=== PATIENT | female | born 1965 | race Caucasian/White ===

== ENCOUNTER 2023-06-23 10:35 | Emergency (ER) | payer BC, SELFPAY ==
[2023-06-23 11:35] VITALS: BP 154/87; PULSE 102; RESP 20; TEMP 36.8; O2SAT 95; BMI 41.8
[2023-06-23 11:54] LABS: UTC Strep Screen (Rapid) Negative (Negative)
[2023-06-23 11:55] LABS: UTC Influenza A Antigen Negative (Negative); UTC Influenza B Antigen Negative (Negative)
--- NOTE | 2023-06-23 11:55 | EXP.UTC ---
Discharge Plan Disposition Patient Disposition: Home, Self-Care Condition: Good Prescriptions Prescriptions: New azithromycin [Zithromax Z-Chacho] 250 mg tablet See Rx Instructions .ROUTE .COMPLEX 5 Days Qty: 6 0RF Rx Instructions: For 250 mg dose pack: take 500 mg today (day 1), then 250 mg for 4 days (days 2-5) guaifenesin [Mucinex] 600 mg tablet extended release 12hr 1,200 mg PO BID PRN (Reason: cough) Qty: 20 0RF No Action losartan 100 mg tablet 100 mg PO DAILY Patient Comments: TAKE 1 TABLET BY MOUTH EVERY DAY hydrochlorothiazide 12.5 mg tablet 12.5 mg PO DAILY Patient Comments: TAKE 1 TABLET BY MOUTH EVERY DAY insulin degludec [Tresiba FlexTouch U-200] 200 unit/mL (3 mL) insulin pen 30 unit SQ DAILY Patient Comments: INJECT 30 UNITS EVERY MORNING AND 30 UNITS EVERY EVENING PLUS 2 UNITS TO PRIME NEEDLE TWICE DAILY. Ozempic 2 mg/dose (8 mg/3 mL) pen injector 2 mg SQ WEEKLY Patient Comments: INJECT 2 MG EVERY WEEK BY SUBCUTANEOUS ROUTE metformin 500 mg tablet extended release 24 hr 1,000 mg PO HS Patient Comments: TAKE 2 TABLETS BY MOUTH EVERY NIGHT Referrals Follow up/Referrals: Christina Evans DO [Primary Care Provider] - See instructions Activity Restrictions/Add. Instructions Additional Instructions/Restrictions: *Monitor Temp, Over the counter Motrin or Tylenol as directed/as needed Tylenol every 4 hours and Motrin every 6 hours (as long as your family doctor has told you that you can take it) for fever or pain. and straight to ER if unable to lower temp less than 101.0 after medication given *Warm salt water gargles may help to soothe the throat *Throat Lozenges? *Warm fluids like tea with honey may help to soothe the throat? *Sleep elevated *Humidifier/Vaporizer Your throat swab was sent for culture. Those results are typically sent to your primary care. Be sure to follow up in 2-3 days with your family doctor/primary care physician if no improvement so they can review those result and treat if necessary. If you don?t have a primary care doctor, I recommend you get one but in the mean time, you will have to return to a walk in clinic Follow up IMMEDIATELY for new or worsening symptoms or no Noticeable improvement over the next 48-72 hours. 911 for difficulty breathing or swallowing Clinical Impressions Clinical Impression: Pharyngitis Qualifiers: Pharyngitis/tonsillitis etiology: unspecified etiology Qualified Code(s): J02.9 - Acute pharyngitis, unspecified Instructions Patient Instructions: Sore Throat, DI for Sinusitis, Cough Discharge ED Provider: Marichuy Pabon [facility] [place] General Stated complaint: cough, h/a, fever Mode of Arrival: Ambulatory Source of Information: Patient Limitations: No Limitations Time Seen by Provider: 06/23/23 11:55 Description of Symptoms (Recalled from Triage Doc. by RN): PATIENT C/O COUGH, FEVER, AND HEADACHE X 2 DAYS HEENT Symptoms (Recalled from RN notes): Yes Resp Symptoms (Recalled from RN notes): Yes Skin Symptoms (Recalled from RN notes): No MS Symptoms (Recalled from RN notes): No Functional Status (Recalled from RN notes): WNL History of Present Illness Provider Complaint: Patient states that she hasnt felt well for several days States that she has been having a sore scratchy throat, productive cough at times, headache and thinks she may have had fever last night States that she took a home COVID test and it was negative so she came in to get checked for flu and strep since she starts orientation tomorrow for her new job Related Data Home Medications Medication Instructions Recorded Confirmed hydrochlorothiazide 12.5 mg tablet 12.5 mg PO DAILY 06/23/23 06/23/23 insulin degludec 200 unit/mL (3 30 unit SQ DAILY 06/23/23 06/23/23 mL) subcutaneous pen (Tresiba FlexTouch U-200 insulin) losartan 100 mg tablet 100 mg PO DAILY 06/23/23 06/23/23 metformin 500 mg tablet,extended 1,000 mg PO HS 06/23/23 06/23/23 release 24 hr semaglutide 2 mg/dose (8 mg/3 mL) 2 mg SQ WEEKLY 06/23/23 06/23/23 subcutaneous pen injector (Ozempic) Previous Rx's Medication Instructions Recorded azithromycin 250 mg tablet See Rx Instructions PO .COMPLEX 5 06/23/23 (Zithromax Z-Chacho) days #6 tabs guaifenesin 600 mg tablet, 1,200 mg PO BID PRN cough #20 tabs 06/23/23 extended release 12 hr (Mucinex) Allergies Allergy/AdvReac Type Severity Reaction Status Date / Time cat dander Allergy Verified 06/23/23 11:51 Worker's Comp Is this a Worker's Comp case?: No [facility] Disclaimer: The information contained in this section may have been updated after the patient was seen, as this information can be updated by other users. Medical History (Updated 06/23/23 @ 12:01 by Marichuy Pabon APRN) Asthma Diabetes mellitus, type 2 Hypertension Surgical History (Updated 06/23/23 @ 12:00 by Desiree Clements RN) History of section History of cholecystectomy History of hysterectomy Social History Smoking Status: Unknown if ever smoked alcohol intake: never current occupational status: employed Travel in the last 8 weeks: None ROS Obtained: Yes All systems reviewed & no additional complaints except as documented and Yes Systems reviewed as appropriate & no additional complaints except as documented Constitutional Constitutional: Reports system reviewed and no additional complaints, except as documented, Reports as per HPI, Reports body ache, Reports fever(s) and Reports headache(s) ENT Ears, Nose, Mouth, and Throat: Reports system reviewed and no additional complaints, except as documented, Reports as per HPI, Reports headache(s), Reports sinus pressure and Reports sore throat Cardiovascular Cardiovascular: Reports system reviewed and no additional complaints, except as documented and Reports as per HPI Respiratory Respiratory: Reports system reviewed and no additional complaints, except as documented, Reports as per HPI, Reports chest congestion and Reports cough Gastrointestinal Gastrointestingal: Reports system reviewed and no additional complaints, except as documented and as per HPI Musculoskeletal Musculoskeletal: Reports system reviewed and no additional complaints, except as documented and Reports as per HPI Neurologic Neurologic: Reports headache(s) Physical Exam General General appearance: alert and in no apparent distress ENT ENT exam: Present mucous membranes moist Expanded ENT Exam Nose exam: Present sinus tenderness Throat exam: Present other (Pharyngeal erythema noted with PND) Respiratory Respiratory exam: Present normal lung sounds bilaterally; Absent respiratory distress or wheezes Cardiovascular Cardiovascular exam: Present regular rate, normal rhythm and tachycardia Neurological Exam Neurological exam: Present alert, oriented X3 and normal gait Medical Decision Making Herber Inquiry Pt receiving controlled substance: No Herber was queried for this patient: No Vital Signs: 06/23/23 11:35 Temperature 98.2 F Temperature Source Oral Pulse Rate [Left Brachial] 102 H Respiratory Rate 20 Blood Pressure [Left Arm] 154/87 H Blood Pressure Mean [Left Arm] 109 Blood Pressure Source [Left Arm] Automatic Cuff Blood Pressure Position [Left Arm] Sitting 02 Sat by Pulse Oximetry 95 Oxygen Delivery Method Room Air Lab Data Lab results reviewed: Yes I reviewed the patient's lab results. Lab Results 06/23/23 11:50: Strep Scn Rapid Clinic Negative
[2023-06-23 12:04] VITALS: BP 154/87; PULSE 102; RESP 20; TEMP 36.8; O2SAT 95
== END 2023-06-23 12:06 | disposition home or self-care (01) ==
PROVIDERS: Emergency Provider Nurse Practitioner; PCP Family Medicine
DX: J02.9 Acute pharyngitis, unspecified (principal); R05.8 Other specified cough; R51.9 Headache, unspecified; R50.9 Fever, unspecified; R09.81 Nasal congestion; I10 Essential (primary) hypertension; E11.9 Type 2 diabetes mellitus without complications; Z79.4 Long term (current) use of insulin; Z79.84 Long term (current) use of oral hypoglycemic drugs; Z79.85 Long-term (current) use of injectable non-insulin antidiabetic drugs
CPT/HCPCS: 87804; 87880; 99204; 99212; G0463

== ENCOUNTER 2023-12-02 12:51 | Emergency (ER) | payer OTHER, SELFPAY ==
[2023-12-02 13:05] VITALS: BP 165/92; PULSE 89; RESP 17; TEMP 36.7; O2SAT 98; BMI 42.2
--- NOTE | 2023-12-02 13:15 | ED_ITS ---
Discharge Plan Disposition Patient Disposition: Home, Self-Care Condition: Good Prescriptions Prescriptions: New mupirocin 2 % ointment 1 applic topical TID 10 Days Qty: 22 0RF Rx Instructions: apply to wound on heel area as directed No Action losartan 100 mg tablet 100 mg PO DAILY Patient Comments: TAKE 1 TABLET BY MOUTH EVERY DAY hydrochlorothiazide 12.5 mg tablet 12.5 mg PO DAILY Patient Comments: TAKE 1 TABLET BY MOUTH EVERY DAY insulin degludec [Tresiba FlexTouch U-200] 200 unit/mL (3 mL) insulin pen 30 unit SQ DAILY Patient Comments: INJECT 30 UNITS EVERY MORNING AND 30 UNITS EVERY EVENING PLUS 2 UNITS TO PRIME NEEDLE TWICE DAILY. Ozempic 2 mg/dose (8 mg/3 mL) pen injector 2 mg SQ WEEKLY Patient Comments: INJECT 2 MG EVERY WEEK BY SUBCUTANEOUS ROUTE azithromycin [Zithromax Z-Chacho] 250 mg tablet See Rx Instructions .ROUTE .COMPLEX 5 Days Qty: 6 0RF Rx Instructions: For 250 mg dose pack: take 500 mg today (day 1), then 250 mg for 4 days (days 2-5) guaifenesin [Mucinex] 600 mg tablet extended release 12hr 1,200 mg PO BID PRN (Reason: cough) Qty: 20 0RF metformin 500 mg tablet extended release 24 hr 1,000 mg PO HS Patient Comments: TAKE 2 TABLETS BY MOUTH EVERY NIGHT Referrals Follow up/Referrals: Christina Evans DO [Primary Care Provider] - See instructions Activity Restrictions/Add. Instructions Additional Instructions/Restrictions: *Monitor Temp, Over the counter Motrin or Tylenol as directed/as needed Tylenol every 4 hours and Motrin every 6 hours (as long as your family doctor has told you that you can take it) for fever or pain. and straight to ER if unable to lower temp less than 101.0 after medication given *Warm salt water gargles may help to soothe the throat *Throat Lozenges? *Warm fluids like tea with honey may help to soothe the throat? *Sleep elevated *Humidifier/Vaporizer Follow up IMMEDIATELY for new or worsening symptoms or no Noticeable improvement over the next 48-72 hours. 911 for difficulty breathing or swallowing You were tested for today for COVID19 your test result should be back in the next 24hours, you may check your results on the [facility] My Health Portal Clinical Impressions Clinical Impression: Viral syndrome, Blister Stand Alone Forms Stand Alone Forms: Work/School Release Instructions Patient Instructions: DI for Blisters, Mupirocin, DI for COVID-19 (Suspected or Confirmed ) Print Language Print Language: Tristanian Discharge ED Provider: Marichuy Pabon [facility] [place] HPI General Stated complaint: covid+ at home test Mode of Arrival: Ambulatory Source of Information: Patient Limitations: No Limitations Time Seen by Provider: 12/02/23 13:15 Description of Symptoms (Recalled from Triage Doc. by RN): PATIENT C/O FEVER, COUGH, SORE THROAT, EAR ACHE, AND HEADACHE SINCE SATURDAY. PATIENT REPORTS A POSITIVE AT HOME COVID TEST. PATIENT ALSO C/O BLISTER ON FOOT SINCE SATURDAY HEENT Symptoms (Recalled from RN notes): Yes Resp Symptoms (Recalled from RN notes): Yes Skin Symptoms (Recalled from RN notes): Yes MS Symptoms (Recalled from RN notes): No Functional Status (Recalled from RN notes): WNL History of Present Illness Provider Complaint: Patient states that she started feeling bad on Saturday States that she has been having body aches, chills, headache, nasal congestion, pain and pressure in her ears and over all not feeling well States that she took a home COVID test and it showed positive and she had to come in and get a test for work States also she is a diabetic and she has a blister on the heel of her foot that she is worried may be getting infected Related Data Home Medications ?Medication ?Instructions ?Recorded ?Confirmed hydrochlorothiazide 12.5 mg tablet 12.5 mg PO DAILY 06/23/23 06/23/23 insulin degludec 200 unit/mL (3 30 unit SQ DAILY 06/23/23 06/23/23 mL) subcutaneous pen (Tresiba FlexTouch U-200 insulin) losartan 100 mg tablet 100 mg PO DAILY 06/23/23 06/23/23 metformin 500 mg tablet,extended 1,000 mg PO HS 06/23/23 06/23/23 release 24 hr semaglutide 2 mg/dose (8 mg/3 mL) 2 mg SQ WEEKLY 06/23/23 06/23/23 subcutaneous pen injector (Ozempic) Previous Rx's ?Medication ?Instructions ?Recorded azithromycin 250 mg tablet See Rx Instructions PO .COMPLEX 5 06/23/23 (Zithromax Z-Chacho) days #6 tabs guaifenesin 600 mg tablet, 1,200 mg (2 x 600 mg) PO BID PRN 06/23/23 extended release 12 hr (Mucinex) cough #20 tabs mupirocin 2 % topical ointment 1 applic topical TID 10 days #22 12/02/23 grams Allergies Allergy/AdvReac Type Severity Reaction Status Date / Time cat dander Allergy Verified 06/23/23 11:51 Worker's Comp Is this a Worker's Comp case?: No [facility] Disclaimer: The information contained in this section may have been updated after the patient was seen, as this information can be updated by other users. Medical History (Updated 12/02/23 @ 13:28 by Marichuy Pabon APRN) Diabetes mellitus, type 2 Asthma Hypertension Surgical History (Updated 06/23/23 @ 12:00 by Desiree Clements RN) History of hysterectomy History of cholecystectomy History of section Social History (Updated 06/23/23 @ 12:01 by Marichuy Pabon APRN) Smoking Status: Unknown if ever smoked alcohol intake: never current occupational status: employed Travel in the last 8 weeks: None ROS Obtained: Yes All systems reviewed & no additional complaints except as documented and Yes Systems reviewed as appropriate & no additional complaints except as documented Constitutional Constitutional: Reports system reviewed and no additional complaints, except as documented, Reports as per HPI, Reports body ache, Reports chills, Reports fever(s) and Reports headache(s) ENT Ears, Nose, Mouth, and Throat: Reports system reviewed and no additional complaints, except as documented, Reports as per HPI, Reports otalgia, Reports headache(s), Reports nasal congestion, Reports nasal discharge and Reports sore throat Cardiovascular Cardiovascular: Reports system reviewed and no additional complaints, except as documented and Reports as per HPI Respiratory Respiratory: Reports system reviewed and no additional complaints, except as documented, Reports as per HPI and Reports cough Gastrointestinal Gastrointestingal: Reports system reviewed and no additional complaints, except as documented and as per HPI Integumentary/Breasts Skin/Breast: Reports system reviewed and no additional complaints, except as documented, Reports as per HPI and Reports other (blister on back of right heel from rubbing shoe) Neurologic Neurologic: Reports headache(s) Physical Exam General General appearance: alert and in no apparent distress ENT ENT exam: Present mucous membranes moist Expanded ENT Exam Nose exam: Absent sinus tenderness Respiratory Respiratory exam: Present normal lung sounds bilaterally; Absent respiratory distress or wheezes Cardiovascular Cardiovascular exam: Present regular rate, normal rhythm and normal heart sounds Expanded Lower Extremity Exam Right: Ankle image: 2 1. open blister area noted, no swelling mild redness noted Foot/toe exam: Present tenderness and other (open blister noted ) Gait: observed and normal Neurological Exam Neurological exam: Present alert, oriented X3 and normal gait Medical Decision Making Herber Inquiry Pt receiving controlled substance: No Herber was queried for this patient: No Vital Signs: 12/02/23 13:05 Temperature 98.0 F Temperature Source Oral Pulse Rate [Left Brachial] 89 Respiratory Rate 17 Blood Pressure [Left Arm] 165/92 H Blood Pressure Mean [Left Arm] 116 Blood Pressure Source [Left Arm] Automatic Cuff Blood Pressure Position [Left Arm] Sitting 02 Sat by Pulse Oximetry 98 Oxygen Delivery Method Room Air Orders (Tests/Meds): ORDERS Category Date Time Status Rapid PCR Covid and Flu A/B Stat Lab 12/02/23 13:11 Ordered
[2023-12-02 13:19] LABS: Influenza A, PCR Not Detected (NotDetected); Influenza B, PCR Not Detected (NotDetected)
[2023-12-02 13:29] VITALS: BP 165/92; PULSE 89; RESP 17; TEMP 36.7; O2SAT 98
[2023-12-02 13:52] LABS: Coronavirus 19, PCR Detected (NotDetected)
== END 2023-12-02 13:33 | disposition home or self-care (01) ==
PROVIDERS: Emergency Provider Nurse Practitioner; PCP Family Medicine
DX: U07.1 COVID-19 (principal); R51.9 Headache, unspecified; R09.81 Nasal congestion; H92.03 Otalgia, bilateral; M79.18 Myalgia, other site; R68.83 Chills (without fever); S90.821A Blister (nonthermal), right foot, initial encounter; E11.9 Type 2 diabetes mellitus without complications; Z79.4 Long term (current) use of insulin; Z79.84 Long term (current) use of oral hypoglycemic drugs; Z79.85 Long-term (current) use of injectable non-insulin antidiabetic drugs; I10 Essential (primary) hypertension; J45.909 Unspecified asthma, uncomplicated; W22.8XXA Striking against or struck by other objects, initial encounter
CPT/HCPCS: 87636; 99212; 99214; G0463

== ENCOUNTER 2024-11-19 10:33 | Outpatient (CLI) | payer OTHER, SELFPAY ==
[2024-11-19 17:30] LABS: Hematocrit 46.7 % (37.0-47.0); Hemoglobin 14.7 g/dL (12.2-16.2); Immature Granulocytes % 0.4 %; Mean Corpuscular HGB Conc 31.5 g/dL (31.8-35.4); Mean Corpuscular Hemoglobin 26.0 pg (27.0-31.2); Mean Corpuscular Volume 82.7 fl (81-99); Nucleated Red Blood Cells % 0 %; Platelet Count 307 K/mm3 (142-424); Red Blood Count 5.65 M/mm3 (4.20-5.40); Red Cell Distribution Width-SD 44.1 fL; White Blood Count 8.2 K/mm3 (4.8-10.8)
[2024-11-19 19:09] LABS: Alanine Aminotransferase 23 U/L (12-78); Albumin Level 4.6 g/dl (3.5-5.0); Albumin/Globulin Ratio 1.6 (1.1-1.8); Alkaline Phosphatase 134 U/L (38-126); Anion Gap 14.9 mEq/L (5-15); Aspartate Amino Transferase 36 U/L (14-36); Bilirubin,Total 0.6 mg/dl (0.2-1.3); Blood Urea Nitrogen 10 mg/dl (7-17); Calcium 10.0 mg/dl (8.4-10.2); Carbon Dioxide 22 mmol/L (22.0-30.0); Chloride 107 mmol/L (98-107); Cholesterol 197 mg/dl (140-200); Creatinine,Serum 0.90 mg/dl (0.52-1.04); Estimated Glomerular Filt Rate 65 ml/min (>60); GFR (African American) 78 ML/MIN (>60); Globulin 2.8 g/dL (1.3-3.2); Glucose 87 mg/dl (74-100); HDL Cholesterol 59 mg/dl (40-60); Potassium 3.9 mmoL/L (3.5-5.1); Sodium 140 mmol/L (136-145); Total Protein,Serum 7.4 g/dl (6.3-8.2); Triglycerides 119 mg/dl (30-150)
[2024-11-19 19:24] LABS: Hemoglobin A1C 5.9 % (4.0-6.0)
[2024-11-19 19:25] LABS: T4 (Thyroxine) 8.6 ug/dl (5.53-11.0)
[2024-11-19 19:38] LABS: Thyroid Stimulating Hormone 0.06 uIU/mL (0.465-4.68)
[2024-11-19 20:07] LABS: Hepatitis C Ab Qual. W/ RFX NEGATIVE (Negative)
--- OUTSIDE RECORDS SUMMARY | 2024-11-20 10:30 | XMS_ITS | Encounter Summary ---
Author Organization [employer] ([place], [place], [place], [place]) Address [address] [place] [address] Care Team Providers Care Side Trimmer Name Role Phone Unavailable Primary Care Provider Unavailabl e Encounter Details Date Type Department Care Team (Late st Contact Info) Description 11/03/2021 Transcribed Document [facility] [place] Family Medicine [facility] [place] [address] ProviderElena MD [facility] [place] [address] Social History Tobacco Use Types Packs/Day Years Used Date Smoking Tobacco: Never Assessed Comments Unknown Sex and Gender Information Value Date Recorded Sex Assigned at Female 12/29/2021 6:26 PM CDT Legal Sex Female 6:26 PM CDT Gender Identity Female 12/29/2021 6:26 PM CDT Sexual Orientation Not on file documented as of this encounter Miscellaneous Notes * [employer] Conversion Note - Elena ProviderMD - 11/03/2021 11:51 AM CDT ED Discharge Entered On: 11/03/2021 11:51 EDT Performed On: 11/03/2021 11:51 EDT by Miriam Horton Non Emp data integrity analyst Process Patient Disposition : Discharge Personal Belongings With Patient : Yes Patient Education Completed : Yes Teaching Evaluation : Verbalizes understanding IV Discontinued : Not applicable Nursing Documentation Completed : Yes Miriam Horton Non Emp RN - 11/03/2021 11:51 EDT ED Discharge Discharge To : Home without planned follow-up Mode Of Departure : Private vehicle Accompanied By : Unaccompanied Discharge Instructions Reviewed With, Opportunity For Questions Given : Patient Miriam Horton Non Emp RN - 11/03/2021 11:51 EDT documented in this encounter Plan of Treatment Not on file documented as of this encounter Visit Diagnoses Not on filedocumented in this encounter
--- OUTSIDE RECORDS SUMMARY | 2024-11-20 10:30 | XMS_ITS | Encounter Summary ---
Author Organization [employer] ([place], [place], [place], [place]) Address [address] [place] [address] Care Team Providers Care Animation Producer Name Role Phone Unavailable Primary Care Provider Unavailabl e Encounter Details Date Type Department Care Team (Late st Contact Info) Description 11/03/2021 Transcribed Document [facility] [place] [facility] [place] [address] ProviderElena MD [facility] [place] [address] Social History Tobacco Use Types Packs/Day Years Used Date Smoking Tobacco: Never Assessed Comments Unknown Sex and Gender Information Value Date Recorded Sex Assigned at Female 12/29/2021 6:26 PM CDT Legal Sex Female 6:26 PM CDT Gender Identity Female 12/29/2021 6:26 PM CDT Sexual Orientation Not on file documented as of this encounter Miscellaneous Notes * [employer] Conversion Note - Historical ProviderMD - 11/03/2021 11:46 AM CDT [facility] [place] [address] Visit Date/Time: 11/03/2021 11:46:36 MYRNA CRUZ The above patient was seen in the hospital today and needs to be excused from work/school until Return to Work/School Date:11/06/2021 No weight bearing left knee until cleared by ortho. Electronically signed by Celena [facility] Conversion Creative Art Director [employer] at 08/07/2022 6:24 PM CDT documented in this encounter Plan of Treatment Not on file documented as of this encounter Visit Diagnoses Not on filedocumented in this encounter
--- OUTSIDE RECORDS SUMMARY | 2024-11-20 10:30 | XMS_ITS | Referral Summary ---
Author Organization [employer] ([place], [place], [place], [place]) Address [address] [place] [address] Care Team Providers Care Surgical Tech Name Role Phone Unavailable Primary Care Provider Unavailabl e Social History Tobacco Use Types Packs/Day Years Used Date Smoking Tobacco: Never Assessed Comments Unknown Sex and Gender Information Value Date Recorded Sex Assigned at Female 12/29/2021 6:26 PM CDT Legal Sex Female 6:26 PM CDT Gender Identity Female 12/29/2021 6:26 PM CDT Sexual Orientation Not on file Plan of Treatment Not on file
--- OUTSIDE RECORDS SUMMARY | 2024-11-20 10:30 | XMS_ITS | Encounter Summary ---
Author Organization [employer] ([place], [place], [place], [place]) Address [address] [place] [address] Care Team Providers Care Supervisor Bindery Name Role Phone Unavailable Primary Care Provider Unavailabl e Encounter Details Date Type Department Care Team (Late st Contact Info) Description 11/03/2021 Transcribed Document [facility] Family Medicine [facility] [place] [address] ProviderElena MD [address] [place] [id number] Social History Tobacco Use Types Packs/Day Years [...] Conversion Note - Historical ProviderMD - 11/03/2021 11:41 AM CDT Patient: MYRNA CRUZ Age: 56 years Sex: Female : 1965 Associated Diagnoses: Left knee sprain Author: FACUNDO ESTRADA PA-C Basic Information Time seen: Date & time 11/03/2021 11:25:00. History source: Patient. Arrival mode: Private vehicle. History limitation: None. Additional information: Chief Complaint from Nursing Triage Note : Chief Complaint 11/03/2021 8:36 EDT Chief Complaint Pt presents with left knee pain since 0700 this am. Reports she stepped wrong with a carseat in her arms. Limping to triage. . History of Present Illness The patient presents with knee pain and knee swelling. The onset was just prior to arrival. Type of injury: twisting. Location: Left knee. The character of symptoms is pain. The degree at present is moderate. There are exacerbating factors including movement, transfer, weight bearing, walking and She reports she twisted left knee twice last week and was still sore today. She then twisted left knee again today. Reports pain mostly right medial/posteriorly.. The relieving factor is rest. Risk factors consist of diabetes mellitus. Prior episodes: none. Therapy today: none. Associated symptoms: none. Review of Systems Constitutional symptoms: Negative except as documented in HPI. Skin symptoms: Negative except as documented in HPI. Musculoskeletal symptoms: Joint pain. Neurologic symptoms: Negative except as documented in HPI. Health Status Allergies: Allergic Reactions (Selected) No Known Allergies. Past Medical/ Family/ Social History Medical history Endocrine: diabetes. Surgical history: No active procedure history items have been selected or recorded.. Family history: No family history items have been selected or recorded.. Social history: Social & Psychosocial Habits Employment/School 11/03/2021 Status: Employed Home/Environment 11/03/2021 Living situation: Home/Independent . Problem list: No qualifying data available . Physical Examination Vital Signs Vital Signs/Vital Measures 11/03/2021 8:36 EDT Systolic Blood Pressure 131 mmHg Diastolic Blood Pressure 74 mmHg Temperature Source Oral Temperature Mode Fahrenheit Temperature, Fahrenheit 97.8 Deg F Clinical Temperature, C 36.6 Deg C Peripheral Pulse Rate 100 bpm Respiratory Rate 16 Breaths/Min Oxygen Saturation 99 % Oxygen Therapy Mode Room air . Measurements 11/03/2021 8:36 EDT Height Source Stated Height Entry Format Crisp Height/Length, PAKISTANI (ft) 5 ft Height/Length PAKISTANI 8 Inch CLINICALHEIGHT 172.72 cm Republic Body Weight 63.45 kg Weight Source, ED Critical estimated dosing weight Weight Entry Format Crisp Weight Bur[place] lb 274 lb CLINICALWEIGHT 124.55 kg Body Surface Area (BSA) 2.34 m2 Body Mass Index 41.8 kg/m2 >HHI . Oxygen Saturation 11/03/2021 8:36 EDT Oxygen Saturation 99 % . General: Alert, no acute distress. Skin: Warm, dry, pink. Head: Normocephalic. Eye Cardiovascular Respiratory Musculoskeletal: No deformity, Lower extremity: Left, knee, tenderness, swelling, range of motion (limited, restricted by pain), tenderness right medial posterior knee, anterior left knee tenderness, no redness, pain with full rom, no lower leg or ankle tenderness. No obvious joint lax.. Chest wall Neurological: Alert and oriented to person, place, time, and situation, normal motor observed, normal speech observed. Psychiatric: Cooperative, appropriate mood & affect, normal judgment. Medical Decision Making Differential Diagnosis: Sprain, strain, internal knee injury. Documents reviewed: Emergency department nurses' notes. Orders Include Previous Orders (Selected) Inpatient Orders Ordered DME For Discharge: Discharge: ED Fall Risk Documented: Completed Broset Violence Assessment: CR Knee 3 Vws LT: ED Adult Fall Risk Assessment: ED Adult Triage: ED C-SSRS: ED Clinical Reconciliation: ED informatica architect: Prescriptions Prescribed Naprosyn 500 mg oral tablet: 1 Tab, Oral, BID, for 10 Day(s), PRN: for pain, 20 Tab, 0 Refill(s). Radiology results: Radiology Results (Last 48 hours) [id number] -- 11/03/2021 08:23 CR Knee 3 Vws LT (11/03/2021 08:52) Result: CLINICAL INDICATION: Left knee pain. EXAMINATION TECHNIQUE: CR Knee 3 Vws LTCOMPARISON:None.FINDINGS:No acute fracture or malalignment. No suprapatellar joint effusion.Minimal tricompartmental osteoarthrosis. Possible intra-articular losebodies in the posterior joint space. No acute soft tissue abnormality.Bone mineralization is within normal limits. No radiodense foreignbodies.IMPRESSION:No acute osseous findings.Images personally reviewed, interpreted and dictated by HUGO Navarro. . Impression and Plan Diagnosis Left knee sprain - Discharge, Emergency medicine, Medical Plan Condition: Stable. Disposition: Discharged Admit/Transfer/Discharge: Discharge (Order): Start: 11/03/2021 11:46 EDT, Discharge to: Home. Prescriptions: Prescription [facility] Pharm[facility]: Naprosyn 500 mg oral tablet (Prescribe): 1 Tab, Oral, BID, for 10 Day(s), PRN: for pain, 20 Tab, 0 Refill(s). Patient was given the following educational materials: Knee Sprain, Adult. Follow up with: ANDREWS CISNEROS Within 2 to 3 days; JUNI HO Within 2 to 3 days Rest and elevate left knee. Follow up with ortho next week. If pain persist, ortho will consider MRI for further evaluation of ligaments. Return to ER if symptoms worse or different.. Counseled: Patient, Regarding diagnosis, Regarding diagnostic results, Regarding treatment plan, Regarding prescription, Patient indicated understanding of instructions. Notes: I certify that the MLP/DIRECTOR OF BILLING performed the services as delegated. . documented in this encounter Plan of Treatment Not on file documented as of this encounter Visit Diagnoses Not on filedocumented in this encounter
--- OUTSIDE RECORDS SUMMARY | 2024-11-20 10:30 | XMS_ITS | Encounter Summary ---
Author Organization [employer] ([place], [place], [place], [place]) Address [address] [place] [address] Care Team Providers Care Rn Recruitment Name Role Phone Unavailable Primary Care Provider Unavailabl e Encounter Details Date Type Department Care Team (Late st Contact Info) Description 11/03/2021 Transcribed Document [facility] [place] [address] [place] [address] ProviderElena MD [address] [place], [place] [id number] Social History Tobacco Use Types Packs/Day Years [...] Conversion Note - Historical ProviderMD - 11/03/2021 8:23 AM CDT Broset Violence Assessment Entered On: 11/03/2021 11:24 EDT Performed On: 11/03/2021 11:23 EDT by Miriam Horton Non Emp RN Broset Violence Assessment Broset Violence Checklist of Symptoms : None Broset Violence Symptoms Subtotal : 0 Broset Violence Symptoms Indicator : Low risk (0) Broset Interventions : [place] precautions for safety used Miriam Horton Non Emp RN - 11/03/2021 11:23 EDT documented in this encounter Plan of Treatment Not on file documented as of this encounter Visit Diagnoses Not on filedocumented in this encounter
--- OUTSIDE RECORDS SUMMARY | 2024-11-20 10:30 | XMS_ITS | Clinical Summary ---
Author Organization [employer] ([place], [place], [place], [place]) Address [address] [place] [address] Care Team Providers Care Gas Combustion Engineer Name Role Phone Unavailable Primary Care Provider [...]
--- OUTSIDE RECORDS SUMMARY | 2024-11-20 10:30 | XMS_ITS | Clinical Summary ---
Author Organization [facility] Address [address] [place] [address] Care Team Providers Care Divisional Human Resources Director Name Role Phone Mckenzie Soto Primary Care Provider [phone] Allergies No known active allergies Social History Tobacco Use Types Packs/Day Years Used Date Smoking Tobacco: Never Assessed Comments Unknown Sex and Gender Information Value Date Recorded Sex Assigned at Not on file Legal Sex Female 7:08 PM EDT Gender Identity Not on file Sexual Orientation Not on file Last Filed Vital Signs Vital Sign Reading Time Taken Comments Blood Pressure 148/83 08/24/2022 4:19 PM EDT Pulse 89 08/24/2022 4:19 PM EDT Temperature - - Respiratory Rate - - Oxygen Saturation 94% 08/24/2022 4:19 PM EDT Inhaled Oxygen Concentration - - Weight 122 kg (270 lb) 08/24/2022 2:09 PM EDT Height 172.7 cm (5' 8 ) 08/24/2022 2:09 PM EDT Body Mass Index 41.05 08/24/2022 2:09 PM EDT Plan of Treatment Health Maintenance Due Date Last Done Comments [facility]-Depression Screening 1965 [facility]-HIV Screening 1965 [facility]-Hepatitis C Screening 1965 [facility]-Infant/Child/Adol SDOH Screenings 1965 [facility]-Obesity Intervention 10/18/1973 [facility]- SDOH Screenings 10/18/1985 [facility]-Adult SDOH Screenings 10/18/1985 [facility]-DTaP,Tdap,and Td Vaccine s (1 - Tdap) 10/18/1986 [facility]-Hepatitis B Vaccines (1 of 3 - 19+ 3-dose series) 10/18/1986 [facility]-Pap Smear 10/18/1988 [facility]-Cervical Cancer Screening 10/18/1997 [facility]-HPV/Cotest 10/18/1997 CT Colonography 10/18/2012 Colonoscopy 10/18/2012 FIT-DNA 10/18/2012 FIT 10/18/2012 FOBT 10/18/2012 Sigmoidoscopy 10/18/2012 [facility]-Colorectal Cancer Screening 10/18/2012 [facility]-Breast Cancer Screening 10/18/2017 [facility]-Pneumococcal Vaccine: 50 + Years (1 of 1 - PCV) 10/18/2017 [facility]-Zoster Vaccines (1 of 2) 10/18/2017 [id number] Vaccine ( season) 2023 03/02/2021, 05/27/2020, 04/29/2020 [facility]-Influenza Vaccine (#1) 2024 HPV Vaccines Aged Out No longer eligi ble based on patient's age to complete this topic [facility]-HIB Vaccines Aged Out No longer e ligible based on patient's age to complete this topic [facility]-Hepatitis A Vaccines Aged Out No longer eligible based on patient's age to complete this topic [facility]-IPV Vaccines Aged Out No longer e ligible based on patient's age to complete this topic [facility]-Rotavirus Vaccines Aged Out No lo nger eligible based on patient's age to complete this topic Insurance Care Teams Divisional Human Resources Director Relationship Specialty Start Date End Date Mckenzie Soto PA [address] [place] [address] [id number] [facility] - General 08/24/22
--- OUTSIDE RECORDS SUMMARY | 2024-11-20 10:30 | XMS_ITS | Encounter Summary ---
Author Organization [employer] ([place], [place], [place], [place]) Address [address] [place] [address] Care Team Providers Care President Sales And Marketing Name Role Phone Unavailable Primary Care Provider Unavailabl e Encounter Details Date Type Department Care Team (Late st Contact Info) Description 11/03/2021 Transcribed Document [facility] Family Medicine [facility] [place] [address] ProviderElena MD [facility] [place] [address] Social History Tobacco Use Types [...] Conversion Note - Elena ProviderMD - 11/03/2021 8:23 AM CDT ED Assessment Entered On: 11/03/2021 11:24 EDT Performed On: 11/03/2021 11:23 EDT by Miriam Horton Non Emp PACKAGE CENTER SUPERVISOR Quick Look Assessment Level of Consciousness : Alert, Awake Affect/Behavior : Appropriate, Calm Orientation : Oriented x 4 Skin Temperature : Warm Skin Description : Normal for ethnicity Miriam Horton Non Emp RN - 11/03/2021 11:23 EDT ED General-Functional Assess Information Obtained From : Patient Communication Barrier : None Primary Language : Macedonian Any Spiritual/Cultural Needs or Requests : No Currently in Unsafe Situation : No Miriam Horton Non Emp RN - 11/03/2021 11:23 EDT Social Habits Smoking Status : Never (less than 100 in lifetime; none in last 30 days) Smokeless Tobacco Status : Never Desires Tobacco Cessation Calc : 0 Miriam Horton Non Zahraa RN - 11/03/2021 11:23 EDT Social History (As Of: 11/03/2021 11:24:53 EDT) Cardiovascular ASMT, ED Nail Bed Color : [place] Chest Pain : No Miriam Horton Non Zahraa RN - 11/03/2021 11:23 EDT Respiratory Respiratory Assessment Comment : even and unlabored Miriam Horton Zenia Vital RN - 11/03/2021 11:23 EDT Musculoskeletal Musculoskeletal Assessment Comment : pt twisted her ankle, has a limp currently, normal able to ambulate just fine Miriam Horton Non Zahraa RN - 11/03/2021 11:23 EDT Neurologic ASMT, ED Neurological Symptoms : None Level of Consciousness : Alert, Awake Affect/Behavior : Appropriate, Calm Orientation : Oriented x 4 Miriam Horton Non Zahraa RN - 11/03/2021 11:23 EDT Pain Assessment Pain Assessment : Initial assessment Pain Scl Goal Comment : pain intensifies with ambulation or movement of L ankle Pain Scale Used : 0-10 Scale Miriam Horton Non Zahraa RN - 11/03/2021 11:23 EDT Pain Scale Intensity : 2 Miriam Horton Non Zahraa MOREIRA - 11/03/2021 11:23 EDT Image 4 - Images currently included in the form version of this document have not been included in the text rendition version of the form. documented in this encounter Plan of Treatment Not on file documented as of this encounter Visit Diagnoses Not on filedocumented in this encounter
--- OUTSIDE RECORDS SUMMARY | 2024-11-20 10:30 | XMS_ITS | Encounter Summary ---
Author Organization [employer] ([place], [place], [place], [place]) Address [address] [place] [address] Care Team Providers Care Greenhouse Specialist Name Role Phone Unavailable Primary Care Provider Unavailabl e Encounter Details Date Type Department Care Team (Late st Contact Info) Description 11/03/2021 Transcribed Document [facility] [place] Family Medicine [facility] [place] [address] ProviderElena MD [address] [place] [address] Social History Tobacco Use Types Packs/Day Years Used Date Smoking Tobacco: Never Assessed Comments Unknown Sex and Gender Information Value Date Recorded Sex Assigned at Female 12/29/2021 6:26 PM CDT Legal Sex Female 6:26 PM CDT Gender Identity Female 12/29/2021 6:26 PM CDT Sexual Orientation Not on file documented as of this encounter Miscellaneous Notes * Cerner Conversion Note - Elena Brown MD - 11/03/2021 11:51 AM CDT [facility] [place] [address] MYRNA CRUZ :1965 Visit Time:11/03/2021 Your Visit Summary Your Care Team Primary Provider: FACUNDO ESTRADA PA-C Secondary Provider: Your Diagnosis Knee pain-swelling Left knee sprain Medical Information You may obtain a copy of your Emergency Department visit from Medical Records by calling the hospital phone number listed above and asking to be directed to the Medical Records Department. If you had special tests, such as EKG???s or X-rays, the interpretation of your tests given to you by the Emergency Department Physician is a preliminary report. Some fractures and illnesses fail to show up on preliminary tests. These will be reviewed again and we will call you if there are any new suggestions. If your symptoms continue notify your physician. After you leave, you should follow the instructions provided. What to do next Follow-Up Appointments Follow Up with JUNI HO When Within 2 to 3 days Comments Rest and elevate left knee. Follow up with ortho next week. If pain persist, ortho will consider MRI for further evaluation of ligaments. Return to ER if symptoms worse or different. Where: [address] [place] [address]- clypd (1) Follow Up with ANDREWS CISNEROS When Within 2 to 3 days Where: [address] [place] [address]- clypd (1) Allergies No Known Allergies Immunizations This Visit No Immunizations Found Medications What How Much When Instructions Next Dose naproxen (Naprosyn 500 mg oral tablet) 1 Tablet(s) Oral Two Times A Day as needed for for pain Duration: 10 Day(s) Printed Prescription The home medications listed are only as accurate as the information you provided. Please continue taking all of your medications prescribed by your Primary Care Provider unless specifically told to change or discontinue the medication. Please direct any questions regarding your home medications to your Primary Care Provider. Take your medications faithfully. Do NOT skip medication. Do NOT stop taking medications without the direction of a physician. Carry a list of your medications with you at all times, and take this medication list with you to your first follow up visit. Report any side effects. Avoid herbal remedies unless discussed with your physician. As part of your treatment plan, your physician may have prescribed a limited course of a controlled substance. This medication may be given to help people with moderate or severe pain or for other medical conditions, but there are risks involved with treatment. Common side effects may include nausea, constipation, drowsiness, sweating, itching, dry mouth, and rash. More serious side effects may include cognitive and motor impairment, like problems with thinking, concentrating, alertness, and movement (e.g. slowed reflexes), and driving and operating heavy machinery can be dangerous. It is important for you to talk to your physician if you have these side effects or questions. These controlled substances can produce physical dependence and be habit-forming if taken for an extended period of time, which means that the body has gotten used to them and may experience withdrawal symptoms if they are abruptly stopped. Withdrawal symptoms can include runny nose, sweating, goose bumps, diarrhea, abdominal cramping, rapid heartbeat, difficulty sleeping, and nervousness. Please dispose of unused and medications per pharmacy guidance. Test Results Laboratory or Other Results This Visit (last charted value for your 11/03/2021 visit) Diagnostic Radiology 11/03/2021 8:52 AM CR Knee 3 Vws LT: CR Knee 3 Vws LT Education Materials Knee Sprain, Adult A knee sprain is a stretch or tear in a knee ligament. Knee ligaments are tissues that connect bones in the knee to each other. What are the causes? This condition often results from: ??? A fall. ??? An injury to the knee. What are the signs or symptoms? Symptoms of this condition include: ??? Trouble straightening or bending the leg. ??? Swelling in the knee. ??? Bruising around the knee. ??? Tenderness or pain in the knee. ??? Muscle spasms around the knee. How is this diagnosed? This condition may be diagnosed based on: ??? A physical exam. ??? A history of what happened just before you started to have symptoms. ??? Tests, including: ? An X-ray. This may be done to make sure no bones are broken. ? An MRI. This may be done to check if the ligament is torn. ? Stress testing of the knee. This may be done to check ligament damage. How is this treated? Treatment for this condition may involve: ??? Keeping the knee still (immobilized) with a cast, brace, or splint. ??? Applying ice to the knee. This helps with pain and swelling. ??? Raising (elevating) the knee above the level of your heart when you are resting. This helps with pain and swelling. ??? Taking medicine for pain. ??? Doing exercises to prevent or limit permanent weakness or stiffness in your knee. ??? Having surgery to reconnect the ligament to the bone or to reconstruct it. This may be needed if the ligament is completely torn. Follow these instructions at home: If you have a splint or brace: ??? Wear it as told by your health care provider. Remove it only as told by your health care provider. ??? Check the skin around it every day. Tell your health care provider about any concerns. ??? Loosen it if your toes tingle, become numb, or turn cold and blue. ??? Keep it clean and dry. If you have a cast: ??? Do not stick anything inside it to scratch your skin. Doing that increases your risk of infection. ??? Check the skin around it every day. Tell your health care provider about any concerns. ??? You may put lotion on dry skin around the edges of the cast. Do not put lotion on the skin underneath the cast. ??? Keep it clean and dry. Bathing If you have a splint, brace, or cast that is not waterproof: ??? Do not let it get wet. ??? Cover it with a watertight covering when you take a bath or a shower. Managing pain, stiffness, and swelling ??? If directed, put ice on the injured area. To do this: ? If you have a removable splint or brace, remove it as told by your health care provider. ? Put ice in a plastic bag. ? Place a towel between your skin and the bag or between your cast and the bag. ? Leave the ice on for 20 minutes, 2???3 times a day. ??? Move your toes often to reduce stiffness and swelling. ??? Elevate the injured area above the level of your heart while you are sitting or lying down. General instructions ??? Take [id number] and prescription medicines only as told by your health care provider. ??? Do not use any products that contain nicotine or tobacco, such as cigarettes, e-cigarettes, and chewing tobacco. These can delay healing. If you need help quitting, ask your health care provider. ??? Do exercises as told by your health care provider. ??? Keep all follow-up visits as told by your health care provider. This is important. Contact a health care provider if: ??? You have pain that gets worse. ??? The cast, brace, or splint does not fit right. ??? The cast, brace, or splint gets damaged. Get help right away if: ??? You cannot use your injured knee to support any of your body weight (cannot bear weight). ??? You cannot move the injured joint. ??? You cannot walk more than a few steps without pain or without your knee buckling. ??? You have significant pain, swelling, or numbness in the leg below the cast, brace, or splint. ??? Your foot or toes are numb, cold, or blue after loosening your splint or brace. Summary ??? A knee sprain is a stretch or tear in a knee ligament that usually occurs as the result of a fall or injury. ??? Treatment may involve immobilizing the knee with a cast, splint, or brace and then doing exercises. ??? If the ligament is completely torn, it may require surgery to repair or replace the injured ligament. This information is not intended to replace advice given to you by your health care provider. Make sure you discuss any questions you have with your health care provider. Document Revised: 02/26/2020 Document Reviewed: 02/26/2020 [employer] Patient Education ?? 2020 [employer]. Emergency Awareness and Preventative Care STROKE is an EMERGENCY Every Minute Counts Act FAST and Check for these signs: FACE Does the face look uneven? ARM Does one arm drift down? SPEECH Does their speech sound strange? TIME Call at any sign of stroke Stroke Risk Factors Atrial Fibrillation (irregular heartbeat) Diabetes Family history of stroke Heart Disease Heavy alcohol use High Blood Pressure High Cholesterol Physical inactivity and obesity Smoking Cigarette Smoking The facts are clear, cigarette smoking will shorten your life. Smoking can cause many illnesses along the way. As a healthcare provider, we recommend that you stop smoking. Assistance with quitting is available by contacting 0-916-JNGN-NOW. This is a free resource providing counseling, support, and referral. Or you may contact your personal physician. National Suicide Prevention Lifeline: The National Suicide Prevention Lifeline is a national network of local crisis centers that provides free and confidential emotional support to people in suicidal crisis or emotional distress 24 hours a day, 7 days a week. Don't Wait! Stop a Heart Attack Before it Starts What is a heart attack? A heart attack is damage or to a part of the heart from severely decreased or lack of blood flow to the heart. Over time, arteries can become narrow from the buildup of fat and cholesterol, which is called plaque. The plaque can rupture causing a blood clot to form. When the blood clot forms, the artery can become severely narrowed or completely blocked, causing a heart attack. Heart attack is the leading cause of in the [place]. 85% of muscle damage occurs within the first 2 hours. Delay in the recognition of heart attack symptoms increases the chances of . Know the early symptoms of a heart attack: Nausea Feeling of fullness in chest Jaw Pain Pain that travels down one or both arms Fatigue/being tired Anxiety Back Pain Chest pressure, squeezing, or discomfort Shortness of breath Sweating, or a cold sweat Feeling of impending doom There are unusual signs of a heart attack, too! Women, the elderly, and diabetics may present with atypical symptoms: Fainting/dizziness Weakness Confusion Risk Factors for a Heart Attack Some heart disease risk factors, such as age and family history, cannot be changed. Others, like smoking and lack of exercise, can be changed. Smoking High Cholesterol High Blood Pressure Family History Obesity Age Gender (Males are at higher risk) Lack of Exercise Diabetes Diet Stress Excessive Alcohol Intake If you or someone you know is experiencing the signs and symptoms of a heart attack, DON???T DELAY. Call immediately and seek help. If someone collapses, perform CPR! Do not attempt to drive if you are having symptoms of heart attack. Hands-Only CPR Why Hands-Only CPR? Hands-Only CPR has been shown to be as effective as conventional CPR for cardiac arrests that occur outside of a hospital. Survival depends on immediately receiving CPR from someone nearby. How do you perform Hands-Only CPR? There are two easy steps: Call if you see a teen or adult collapse Push hard and fast in the center of the chest at a beat of 100 beats per minute. Save a life! 4 WAYS TO GET AHEAD OF SEPSIS SEPSIS is a MEDICAL EMERGENCY. Time matters! Infections put you and your family at risk for a life-threatening condition called sepsis. Sepsis is the body's extreme response to an infection. It is life-threatening, and without timely treatment, sepsis can rapidly lead to tissue damage, organ failure, and . Sepsis happens when an infection you already have-in your skin, lungs, urinary tract or somewhere else-triggers a chain reaction throughout your body. 1 PREVENT INFECTIONS Take good care of chronic conditions. Talk to your doctor about getting the recommended vaccines. 2 PRACTICE GOOD HYGIENE Wash your hands frequently. Keep cuts or open sores clean and covered until they are healed. 3 KNOW THE SYMPTOMS Confusion or disorientation Shortness of breath High heart rate Fever, shivering, or feeling very cold Extreme pain or discomfort Clammy or sweaty skin 4 ACT FAST Get medical care IMMEDIATELY if you suspect sepsis or if you have an infection that is not getting better or is getting worse. To learn more about sepsis and how to prevent infections, visit www.cdc.gov/sepsis. The examination and treatment you have received in the Emergency Department has been done to provide an appropriate evaluation and stabilizing treatment on an emergency basis only. Given the limited resources, it is not meant to be a substitute for complete medical care. The follow-up doctor you named will receive a copy of your records and all test reports. IT IS IMPORTANT THAT YOU SCHEDULE A FOLLOW-UP APPOINTMENT AND ARE RE-EVALUATED. You should report any new complaints, symptoms, or remaining problems at that time. IT IS IMPOSSIBLE FOR THE EMERGENCY DEPARTMENT TO RECOGNIZE AND TREAT ALL ELEMENTS OF INJURY OR ILLNESS IN A SINGLE VISIT. If you have been referred to a specialist physician, it means that we believe you may have a condition that requires the expertise of a specialist. These physicians work in partnership with the hospital and have agreed to see referred patients in their office for further evaluation. KEEP IN MIND THAT THE SPECIALIST HAS HIS/HER OWN OFFICE POLICIES WHICH MAY REQUIRE PROPER INSURANCE OR PAYMENT UP FRONT BEFORE THE SPECIALIST WILL SEE YOU. It is your responsibility to call the specialist physician to make an appointment. We do not have the ability to refer patients to specialists/physicians that work with specific insurance companies. Please be advised that all financial charges or billing practices are determined by that practice, not the hospital. If your insurance company requires that you see a specialist from their approved list, it is your responsibility to contact your insurance company to make those arrangements. It is also your responsibility to follow any other requirements of your insurance company necessary to obtain coverage for claims submitted. We will bill your insurance; however, you are responsible today for any co-pay amounts. You will receive a separate bill for any services you may have received including: emergency, radiology, or pathology physicians. Patient Name:MYRNA CRUZ ORLY I have received this information and was given the opportunity to ask questions. Patient/Relief Pilot Name: Patient/Relief Pilot Signature: Relationship to Patient: Clinician/Hospital Relief Pilot Signature: Please Provide a Telephone Number Where You Can Be Reached: Is it Permissible To Leave a Message? Date: Electronically signed by Interface, [facility] Conversion Combat Systems Operator Mine War[employer] Cerner at 08/07/2022 6:03 PM CDT documented in this encounter Plan of Treatment Not on file documented as of this encounter Visit Diagnoses Not on filedocumented in this encounter
--- OUTSIDE RECORDS SUMMARY | 2024-11-20 10:30 | XMS_ITS | Encounter Summary ---
Author Organization [employer] ([place], [place], [place], [place]) Address [address] [place] [address] Care Team Providers Care Nutrition Specialist Name Role Phone Unavailable Primary Care Provider Unavailabl e Encounter Details Date Type Department Care Team (Late st Contact Info) Description 11/04/2021 Transcribed Document [facility] [place] [facility] [place] [address] ProviderElena MD [facility] [place] [address] Social History Tobacco Use Types [...] Cerner Conversion Note - Historical ProviderMD - 11/04/2021 12:17 PM CDT CR Knee 3 Vws LT Ordered: 11/03/2021 Auth (Verified) Reason for Exam: pain 11/03/2021 10:56 11/04/2021 12:17 (KAREN PINEDO, APR) Reviewed by Provider, No further action required x1 11/03/2021 18:54 ([address]) Provider Review Required documented in this encounter Plan of Treatment Not on file documented as of this encounter Visit Diagnoses Not on filedocumented in this encounter
--- OUTSIDE RECORDS SUMMARY | 2024-11-20 10:30 | XMS_ITS | Encounter Summary ---
Author Organization [employer] ([place], [place], [place], [place]) Address [address] [place] [address] Care Team Providers Care Floorworker Lasting Name Role Phone Unavailable Primary Care Provider Unavailabl e Encounter Details Date Type Department Care Team (Late st Contact Info) Description 11/03/2021 Transcribed Document [facility] [place] [facility] [place] [address] ProviderElena MD [address] [place] [address] Social History Tobacco Use Types Packs/Day [...] ProviderMD - 11/03/2021 8:23 AM CDT ED Triage Entered On: 11/03/2021 8:38 EDT Performed On: 11/03/2021 8:36 EDT by TERRI CISNEROS RN ED Triage Across the Room Chief Complaint : Pt presents with left knee pain since 0700 this am. Reports she stepped wrong with a carseat in her arms. Limping to triage. Triage Date/Time : 11/03/2021 8:36 EDT TERRI CISNEROS RN - 11/03/2021 8:36 EDT DCP GENERIC CODE Tracking Acuity : 4 - Non - Urgent Tracking Group : [facility] ED TERRI CISNEROS RN - 11/03/2021 8:36 EDT Mode of Arrival : Ambulatory Transported to ED by : Walk in To Room Via : Ambulate Accompanied By : Unaccompanied ED Vital Signs : Document Height & Weight : Document ED Allergies : Document ED Reason for Visit : Document TERRI CISNEROS RN - 11/03/2021 8:36 EDT Infectious Disease History Does patient have symptoms of COVID-19? : No Tested for COVID19 in the past 14 days : No, Patient stated Does the Patient state known exposure to a COVID-19 positive case in the last 14 days? : No Patient Vaccinated for COVID-19 : Fully vaccinated TERRI CISNEROS RN - 11/03/2021 8:36 EDT Infectious Disease Risk Screening Grid Cough < 2 wks of unknown origin : NO Cough > 2 weeks : NO Blood in Sputum : NO Fever or self-reported Fever : NO Rash of unknown origin : NO Headache : NO Stiff neck : NO Night Sweats : NO Unexplained Weight Loss : NO Diarrhea (3 episode per day) : NO TERRI CISNEROS RN - 11/03/2021 8:36 EDT Physical contact outside [place] in the last 30 days : No Hospitalized in Foreign Country : No Infectious Disease History : None INF Disease TB Screening Calc : 0 INF Disease Recent Travel Calc : 0 TERRI CISNEROS RN - 11/03/2021 8:36 EDT Vital Signs ED Temperature Source : Oral Temperature Mode : Fahrenheit Temperature, Fahrenheit : 97.8 Deg F Clinical Temperature, C : 36.6 Deg C Oxygen Therapy Mode : Room air Peripheral Pulse Rate : 100 bpm Respiratory Rate : 16 Breaths/Min Systolic Blood Pressure : 131 mmHg Diastolic Blood Pressure : 74 mmHg Oxygen Saturation : 99 % TERRI CISNEROS RN - 11/03/2021 8:36 EDT Allergy (As Of: 11/03/2021 08:38:32 EDT) Allergies (Active) No Known Allergies Estimated Onset Date: Unspecified ; Created By: TERRI CISNEROS RN; Reaction Status: Active ; Category: Drug ; Substance: No Known Allergies ; Type: Allergy ; Updated By: TERRI CISNEROS RN; Reviewed Date: 11/03/2021 8:36 EDT Diagnosis Control ED (As Of: 11/03/2021 08:38:32 EDT) Diagnoses(Active) Knee pain-swelling Date: 11/03/2021 ; Diagnosis Type: Reason For Visit ; Confirmation: Complaint of ; Clinical Dx: Knee pain-swelling ; Classification: Medical ; Clinical Service: Emergency medicine ; Code: PNED ; Probability: 0 ; Diagnosis Code: [id number] ED Height and Weight Height Source : Stated Height Entry Format : Winkler Height, Feet : 5 ft(Converted to: 152 cm, 60 Inch) Height, Inches : 8 Inch(Converted to: 0 ft 8 Inch, 20.32 cm) Clinical Height : 172.72 cm Weight Source, ED : Critical estimated dosing weight Weight Entry Format : Winkler Weight, Pounds : 274 lb Clinical Dosing Weight : 124.55 kg Body Surface Area (BSA) : 2.34 m2 Body Mass Index : 41.8 kg/m2 (>HHI) [place] Body Weight (IBW) : 63.45 kg TERRI CISNEROS RN - 11/03/2021 8:36 EDT Electronically signed by Yves [place] Conversion [employer] Yard Worker Cerner at 08/07/2022 6:10 PM CDT documented in this encounter Plan of Treatment Not on file documented as of this encounter Visit Diagnoses Not on filedocumented in this encounter
--- OUTSIDE RECORDS SUMMARY | 2024-11-20 10:30 | XMS_ITS | Encounter Summary ---
Author Organization [employer] ([place], [place], [place], [place]) Address [address] [place] [address] Care Team Providers Care Wiping Cloth Cutter Name Role Phone Unavailable Primary Care Provider Unavailabl e Encounter Details Date Type Department Care Team (Late st Contact Info) Description 11/03/2021 Transcribed Document [facility] [place] [facility] [place] [address] ProviderElena MD [facility] [place] [address] Social History Tobacco Use Types [...] Historical ProviderMD - 11/03/2021 11:46 AM CDT documented in this encounter Plan of Treatment Not on file documented as of this encounter Visit Diagnoses Not on filedocumented in this encounter
[2024-11-21 08:32] LABS: Hepatitis B Surface Antigen Negative (Negative)
== END 2024-11-19 23:59 | disposition home or self-care (01) ==
LOC: LAB.DROPOF 11-20 10:28
PROVIDERS: PCP Family Medicine; Visit Provider Family Medicine
DX: Z11.59 Encounter for screening for other viral diseases (principal); I10 Essential (primary) hypertension; E11.9 Type 2 diabetes mellitus without complications; Z11.4 Encounter for screening for human immunodeficiency virus [HIV]
CPT/HCPCS: 80053; 80061; 83036; 84436; 84443; 85025; 86803; 87340; 87389